=== PATIENT | female | born 1940 | race Caucasian/White ===

== ENCOUNTER 2020-01-04 22:11 | Inpatient (IN) | payer MEDICARE ==
[2020-01-05] MEDS ORDERED: Ondansetron 4 mg VIAL 2 MG/ML 2 ml VIAL IV PRN (01:39)
[2020-01-05] MEDS ORDERED: NS 0.9% 1000 ml BAG 1,000 ML IV SCH (01:45)
[2020-01-05] MEDS ORDERED: Albuterol HFA INHALER 8 gm MDI INH PRN (01:54)
[2020-01-05 02:15] LABS: ABS Basophils 0.1 10^3/ul (0-0.2); ABS Lymphocytes 1.6 10^3/ul (1.0-4.8); ABS Monocytes 1.4 10^3/ul (0-0.8); Eosinophil % 0.3 %; Hematocrit 50 % (35-47); Hemoglobin 16.8 g/dL (12.0-16.0); Lymphocyte % 15.1 %; Mean Corpuscular HGB Conc 33 g/dL (31-36); Mean Corpuscular Hemoglobin 32 pg (27-31); Mean Corpuscular Volume 97 fL (80-97); Platelet Count 237 10^3/uL (150-450); Red Cell Distribution Width 15 % (10-15); White Blood Count 10.8 10^3/uL (3.5-10.8)
[2020-01-05 02:20] LABS: INR 1.12 (0.82-1.09)
[2020-01-05] MEDS: Metoprolol Tartrate 5 mg VIAL 5 ml VIAL (1 mg/ml) IV SCH ×4 (02:28→19:50)
[2020-01-05 02:32] LABS: BUN/Creatinine Ratio 31.1 (8-20); Calcium 9.7 mg/dL (8.6-10.3); EGFR African American 91.1 (>60); EGFR Non-African American 75.3 (>60); Potassium 4.7 mmol/L (3.5-5.0)
[2020-01-05 02:51] LABS: Urine Appearance Cloudy; Urine Bilirubin Negative (Negative); Urine Blood 2+ (Negative); Urine Color Yellow; Urine Glucose Negative (Negative); Urine Ketones 2+ (Negative); Urine Nitrite Negative (Negative); Urine Protein 1+(30 mg/dL) (Negative); Urine Specific Gravity 1.025 (1.010-1.030); Urine Urobilinogen Negative (Negative)
[2020-01-05] MEDS ORDERED: D5W 1/2 NS 1000 ml BAG 1,000 ML IV SCH (03:00)
[2020-01-05 03:15] LABS: Urine Bacteria 1+ (Absent); Urine Red Blood Cell 3+(>10/hpf) (Absent); Urine Squamous Epithelial Cell Present (Absent); Urine White Blood Cell 3+(>20/hpf) (Absent)
[2020-01-05] MEDS: metroNIDAZOLE IV 500 MG/100ML 500 MG/100 ML BAG IVPB SCH ×3 (04:16→19:40)
[2020-01-05] MEDS: Pantoprazole VIAL 40 MG VIAL IV SCH (04:21)
[2020-01-05] MEDS: Levothyroxine 100 MCG/5 ML VIAL IV SCH (06:02)
[2020-01-05] MEDS: Heparin 5000 UNITS/ML VIAL(*) 1 ml vial SUBCUT SCH ×3 (06:05→22:23)
[2020-01-05 06:26] LABS: BUN/Creatinine Ratio 31.9 (8-20); Calcium 8.8 mg/dL (8.6-10.3); EGFR African American 98.8 (>60); EGFR Non-African American 81.7 (>60); Potassium 4.2 mmol/L (3.5-5.0)
[2020-01-05 08:33] LABS: TSH (Thyroid Stimulating Horm) 2.97 mcIU/mL (0.34-5.60)
[2020-01-05] MEDS: cefTRIAXone VIAL 1,000 MG in NS 0.9% 50 ML 50 ML IVPB SCH (09:07)
[2020-01-05] MEDS: Digoxin IV 0.5 MG/2 ML AMP (0.25 MG/ML) IV SLOW PU SCH (09:07)
[2020-01-05] MEDS ORDERED: Midazolam 10 mg/10 ml VIAL 1 mg/ml 10 ml VIAL (10 mg) ONE (12:48)
[2020-01-05] MEDS ORDERED: fentaNYL 100 mcg/2 ml 50 MCG/ML VIAL ONE (12:48)
[2020-01-05] MEDS: D5LR 20 MEQ KCL 1000 ml BAG 1,000 ML IV SCH (18:00)
[2020-01-06] MEDS: Metoprolol Tartrate 5 mg VIAL 5 ml VIAL (1 mg/ml) IV SCH ×4 (02:22→20:08)
[2020-01-06] MEDS: metroNIDAZOLE IV 500 MG/100ML 500 MG/100 ML BAG IVPB SCH ×3 (03:51→20:08)
[2020-01-06] MEDS: Levothyroxine 100 MCG/5 ML VIAL IV SCH (05:53)
[2020-01-06] MEDS: Heparin 5000 UNITS/ML VIAL(*) 1 ml vial SUBCUT SCH ×3 (05:53→21:43)
[2020-01-06 06:11] LABS: Hematocrit 45 % (35-47); Hemoglobin 15.3 g/dL (12.0-16.0); Mean Corpuscular HGB Conc 34 g/dL (31-36); Mean Corpuscular Hemoglobin 32 pg (27-31); Mean Corpuscular Volume 95 fL (80-97); Mean Platelet Volume 9.4 fL (7.4-10.4); Platelet Count 212 10^3/uL (150-450); Red Blood Count 4.73 10^6 /uL (3.70-4.87); Red Cell Distribution Width 15 % (10-15); White Blood Count 7.4 10^3/uL (3.5-10.8)
[2020-01-06 06:21] LABS: BUN/Creatinine Ratio 16.7 (8-20); Calcium 8.7 mg/dL (8.6-10.3); Potassium 3.8 mmol/L (3.5-5.0)
[2020-01-06 06:37] LABS: ABS Eosinophils 0.1 10^3/ul (0-0.6); ABS Lymphocytes 1.3 10^3/ul (1.0-4.8); ABS Monocytes 0.9 10^3/ul (0-0.8); Eosinophil % 1.9 %; Large Platelets Present; Lymphocyte % 17.5 %
[2020-01-06 06:48] LABS: Digoxin 0.7 ng/ml (0.8-2.0)
[2020-01-06] MEDS: cefTRIAXone VIAL 1,000 MG in NS 0.9% 50 ML 50 ML IVPB SCH (08:15)
[2020-01-06] MEDS: Pantoprazole VIAL 40 MG VIAL IV SCH (08:17)
[2020-01-06] MEDS: D5LR 20 MEQ KCL 1000 ml BAG 1,000 ML IV SCH (08:23)
[2020-01-06] MEDS ORDERED: Lidocaine 2% PF 5 ML VIAL ONE (11:02)
[2020-01-06] MEDS ORDERED: fentaNYL 100 mcg/2 ml 50 MCG/ML VIAL ONE (11:02)
[2020-01-06] MEDS ORDERED: Midazolam 5 mg/5 ml VIAL 1 mg/ml 5 ml VIAL (5 mg) ONE (11:02)
[2020-01-06] MEDS ORDERED: Dexamethasone IV 4 MG/ML VIAL 1 ml VIAL ONE (11:02)
[2020-01-06] MEDS ORDERED: Propofol 10 MG/ML 20 ML BTL ONE (11:02)
[2020-01-06] MEDS ORDERED: Ondansetron 4 mg VIAL 2 MG/ML 2 ml VIAL ONE (11:02)
[2020-01-06] MEDS ORDERED: Cisatracurium 2 MG/ML MDV 5 ML ONE (11:04)
[2020-01-06] MEDS ORDERED: Famotidine IV 10 MG/ML 2 ml VIAL (20 mg) ONE (11:22)
[2020-01-06] MEDS ORDERED: Buffered Lidocaine 1% SYRIN 1 ml INTRADERM ONE (11:23)
[2020-01-06] MEDS ORDERED: Famotidine IV 10 MG/ML 2 ml VIAL (20 mg) IV ONE (11:23)
[2020-01-06] MEDS ORDERED: Lidocaine 1% w EPI 1:200,000 SDV 30 ML VIAL ONE (11:23)
[2020-01-06] MEDS ORDERED: Phenylephrine 40 mcg/mL 10mL (400mcg) SYRINGE ONE (11:58)
[2020-01-06] MEDS ORDERED: Lactated Ringers 1000 ml BAG 1,000 ML IV SCH (12:00)
[2020-01-06] MEDS ORDERED: Metoprolol Tartrate 5 mg VIAL 5 ml VIAL (1 mg/ml) ONE (12:05)
[2020-01-06] MEDS ORDERED: Neostigmine Methylsulfate 1 MG/ML 10 ML VIAL (1 mg/ml) ONE (12:29)
[2020-01-06] MEDS ORDERED: Glycopyrrolate IV 0.2 MG/ML 1 ML VIAL ONE (12:29)
[2020-01-06] MEDS ORDERED: Naloxone 0.4 mg VIAL 0.4 mg/ml 1 ml VIAL IV PRN (14:44)
[2020-01-07] MEDS: Metoprolol Tartrate 5 mg VIAL 5 ml VIAL (1 mg/ml) IV SCH ×4 (02:05→21:37)
[2020-01-07] MEDS: metroNIDAZOLE IV 500 MG/100ML 500 MG/100 ML BAG IVPB SCH (03:59)
[2020-01-07] MEDS: D5LR 20 MEQ KCL 1000 ml BAG 1,000 ML IV SCH ×2 (05:54→19:42)
[2020-01-07] MEDS: Heparin 5000 UNITS/ML VIAL(*) 1 ml vial SUBCUT SCH (05:56)
[2020-01-07] MEDS: Levothyroxine 100 MCG/5 ML VIAL IV SCH (05:56)
[2020-01-07] MEDS: Digoxin IV 0.5 MG/2 ML AMP (0.25 MG/ML) IV SLOW PU SCH (08:21)
[2020-01-07] MEDS: Pantoprazole VIAL 40 MG VIAL IV SCH (08:21)
[2020-01-07] MEDS: cefTRIAXone VIAL 1,000 MG in NS 0.9% 50 ML 50 ML IVPB SCH (08:23)
[2020-01-07] MEDS ORDERED: Enoxaparin 40 MG/0.4 ML SYR(*) SUBCUT SCH (11:00)
[2020-01-08] MEDS: Metoprolol Tartrate 5 mg VIAL 5 ml VIAL (1 mg/ml) IV SCH ×4 (03:21→19:59)
[2020-01-08] MEDS: Levothyroxine 100 MCG/5 ML VIAL IV SCH (06:19)
[2020-01-08] MEDS: Pantoprazole VIAL 40 MG VIAL IV SCH (08:53)
[2020-01-08] MEDS: cefTRIAXone VIAL 1,000 MG in NS 0.9% 50 ML 50 ML IVPB SCH (08:59)
[2020-01-08] MEDS: D5LR 20 MEQ KCL 1000 ml BAG 1,000 ML IV SCH (09:41)
[2020-01-08] MEDS ORDERED: LORazepam 2 mg VIAL 1 ml IV PUSH PRN (10:51)
[2020-01-08] MEDS ORDERED: Lorazepam PYXIS KEY PRN (10:51)
[2020-01-09] MEDS: Metoprolol Tartrate 5 mg VIAL 5 ml VIAL (1 mg/ml) IV SCH ×4 (02:13→20:30)
[2020-01-09] MEDS: Levothyroxine 100 MCG/5 ML VIAL IV SCH (05:28)
[2020-01-09] MEDS: D5LR 20 MEQ KCL 1000 ml BAG 1,000 ML IV SCH (05:40)
[2020-01-09 05:47] LABS: Hematocrit 47 % (35-47); Hemoglobin 15.8 g/dL (12.0-16.0); Mean Corpuscular HGB Conc 34 g/dL (31-36); Mean Corpuscular Hemoglobin 33 pg (27-31); Mean Corpuscular Volume 97 fL (80-97); Mean Platelet Volume 9.5 fL (7.4-10.4); Platelet Count 184 10^3/uL (150-450); Red Blood Count 4.86 10^6 /uL (3.70-4.87); Red Cell Distribution Width 14 % (10-15); White Blood Count 8.9 10^3/uL (3.5-10.8)
[2020-01-09 06:03] LABS: EGFR African American 98.8 (>60); EGFR Non-African American 81.7 (>60); Magnesium 1.7 mg/dL (1.9-2.7); Potassium 3.6 mmol/L (3.5-5.0)
[2020-01-09 06:15] LABS: ABS Basophils 0.1 10^3/ul (0-0.2); ABS Eosinophils 0.1 10^3/ul (0-0.6); ABS Lymphocytes 1.3 10^3/ul (1.0-4.8); ABS Monocytes 1.2 10^3/ul (0-0.8); Eosinophil % 1.7 %; Large Platelets Present; Lymphocyte % 15.1 %; Spherocytes 1+
[2020-01-09] MEDS: Pantoprazole VIAL 40 MG VIAL IV SCH (08:39)
[2020-01-09] MEDS: Digoxin IV 0.5 MG/2 ML AMP (0.25 MG/ML) IV SLOW PU SCH (08:57)
[2020-01-09 09:15] LABS: Mean Platelet Volume 9.7 fL (7.4-10.4); Platelet Count 191 10^3/uL (150-450)
[2020-01-09] MEDS: cefTRIAXone VIAL 1,000 MG in NS 0.9% 50 ML 50 ML IVPB SCH (09:35)
[2020-01-09 09:37] LABS: INR 1.17 (0.82-1.09)
[2020-01-09] MEDS ORDERED: ceFAZolin 1 GM* X ONE DOSE (AddVan) IVPB (10:00)
[2020-01-09] MEDS ORDERED: Bupivacaine 0.5% SDV PF 30ML VIAL ONE (11:12)
[2020-01-09] MEDS ORDERED: fentaNYL 100 mcg/2 ml 50 MCG/ML VIAL ONE (11:18)
[2020-01-09] MEDS ORDERED: Midazolam 2 mg/2 ml VIAL 1 mg/ml 2 ml VIAL (2 mg) ONE (11:19)
[2020-01-09] MEDS ORDERED: Lidocaine 2% JELLY 6 ML TOPICAL ONE (11:53)
[2020-01-10] MEDS: D5LR 20 MEQ KCL 1000 ml BAG 1,000 ML IV SCH (02:12)
[2020-01-10] MEDS: Metoprolol Tartrate 5 mg VIAL 5 ml VIAL (1 mg/ml) IV SCH ×3 (02:17→14:07)
[2020-01-10] MEDS: Levothyroxine 100 MCG/5 ML VIAL IV SCH (06:28)
[2020-01-10 06:56] LABS: Hematocrit 47 % (35-47); Hemoglobin 15.4 g/dL (12.0-16.0); Mean Corpuscular HGB Conc 33 g/dL (31-36); Mean Corpuscular Hemoglobin 32 pg (27-31); Mean Corpuscular Volume 97 fL (80-97); Mean Platelet Volume 9.7 fL (7.4-10.4); Platelet Count 189 10^3/uL (150-450); Red Blood Count 4.79 10^6 /uL (3.70-4.87); Red Cell Distribution Width 14 % (10-15); White Blood Count 11.9 10^3/uL (3.5-10.8)
[2020-01-10 07:09] LABS: ABS Eosinophils 0.1 10^3/ul (0-0.6); ABS Lymphocytes 1.1 10^3/ul (1.0-4.8); ABS Monocytes 1.2 10^3/ul (0-0.8); Eosinophil % 1.2 %; Lymphocyte % 9.3 %; Nucleated Red Blood Cells % 0.1
[2020-01-10 07:12] LABS: BUN/Creatinine Ratio 18.2 (8-20); Magnesium 1.7 mg/dL (1.9-2.7); Potassium 3.7 mmol/L (3.5-5.0)
[2020-01-10 07:52] LABS: Large Platelets Present
[2020-01-10] MEDS ORDERED: D5LR 20 MEQ KCL 1000 ml BAG 1,000 ML IV SCH (08:06)
[2020-01-10] MEDS: Pantoprazole VIAL 40 MG VIAL IV SCH (08:58)
[2020-01-10] MEDS: cefTRIAXone VIAL 1,000 MG in NS 0.9% 50 ML 50 ML IVPB SCH (10:09)
[2020-01-10] MEDS: Enoxaparin 40 MG/0.4 ML SYR(*) SUBCUT SCH (14:07)
[2020-01-10] MEDS ORDERED: Gadoteridol (CONTRAST) 279.3 MG/ML 10 ML IV ONE (16:14)
[2020-01-11 06:58] LABS: Hematocrit 47 % (35-47); Hemoglobin 15.9 g/dL (12.0-16.0); Mean Corpuscular HGB Conc 34 g/dL (31-36); Mean Corpuscular Hemoglobin 33 pg (27-31); Mean Corpuscular Volume 97 fL (80-97); Mean Platelet Volume 10.5 fL (7.4-10.4); Platelet Count 158 10^3/uL (150-450); Red Blood Count 4.89 10^6 /uL (3.70-4.87); Red Cell Distribution Width 15 % (10-15); White Blood Count 13.4 10^3/uL (3.5-10.8)
[2020-01-11 07:05] LABS: ABS Eosinophils 0.2 10^3/ul (0-0.6); ABS Lymphocytes 0.9 10^3/ul (1.0-4.8); ABS Monocytes 1.4 10^3/ul (0-0.8); Eosinophil % 1.1 %; Lymphocyte % 7.1 %; Nucleated Red Blood Cells % 0.1
[2020-01-11 07:18] LABS: BUN/Creatinine Ratio 23.1 (8-20); Calcium 9.2 mg/dL (8.6-10.3); EGFR African American 105.9 (>60); EGFR Non-African American 87.5 (>60); Magnesium 1.7 mg/dL (1.9-2.7)
[2020-01-11] MEDS: Aspirin EC 81 mg TAB.EC (enteric coated) SCH (09:24)
[2020-01-11] MEDS: cefTRIAXone VIAL 1,000 MG in NS 0.9% 50 ML 50 ML IVPB SCH (09:27)
[2020-01-11] MEDS ORDERED: Magnesium Sulfate IV 1GM/100ML 1 GM/100 ML BAG IV ONE (10:38)
[2020-01-11] MEDS: Enoxaparin 40 MG/0.4 ML SYR(*) SUBCUT SCH (11:55)
[2020-01-11] MEDS ORDERED: Alteplase (CATHFLO) 2 MG VIAL IV ONE (18:19)
[2020-01-12 06:33] LABS: ABS Basophils 0.1 10^3/ul (0-0.2); ABS Eosinophils 0.2 10^3/ul (0-0.6); ABS Lymphocytes 1.1 10^3/ul (1.0-4.8); ABS Monocytes 1.4 10^3/ul (0-0.8); Eosinophil % 1.8 %; Hematocrit 44 % (35-47); Hemoglobin 14.7 g/dL (12.0-16.0); Lymphocyte % 8.7 %; Mean Corpuscular HGB Conc 33 g/dL (31-36); Mean Corpuscular Hemoglobin 32 pg (27-31); Mean Corpuscular Volume 96 fL (80-97); Mean Platelet Volume 10.5 fL (7.4-10.4); Platelet Count 171 10^3/uL (150-450); Red Blood Count 4.61 10^6 /uL (3.70-4.87); Red Cell Distribution Width 15 % (10-15); White Blood Count 12.2 10^3/uL (3.5-10.8)
[2020-01-12 06:38] LABS: Calcium 8.8 mg/dL (8.6-10.3); Magnesium 2.1 mg/dL (1.9-2.7)
[2020-01-12 06:43] LABS: BUN/Creatinine Ratio 30.5 (8-20); EGFR African American 118.4 (>60); EGFR Non-African American 97.8 (>60)
[2020-01-12 06:55] LABS: Potassium 3.7 mmol/L (3.5-5.0)
[2020-01-12] MEDS: cefTRIAXone VIAL 1,000 MG in NS 0.9% 50 ML 50 ML IVPB SCH (10:15)
[2020-01-12] MEDS: Aspirin EC 81 mg TAB.EC (enteric coated) SCH (10:24)
[2020-01-12] MEDS: Digoxin LIQ ORALSYR 0.05 MG/ML 1 ML PEG TUBE SCH (10:27)
[2020-01-12] MEDS: Enoxaparin 40 MG/0.4 ML SYR(*) SUBCUT SCH (11:28)
[2020-01-13 18:48] LABS: Anion Gap 6 mmol/L (2-11); BUN/Creatinine Ratio 32.1 (8-20); Blood Urea Nitrogen 17 mg/dL (6-24); CO2 Carbon Dioxide 30 mmol/L (22-32); Calcium 8.9 mg/dL (8.6-10.3); Chloride 101 mmol/L (101-111); EGFR Non-African American 110.7 (>60); Glucose 119 mg/dL (70-100); Sodium 137 mmol/L (135-145)
[2020-01-13 18:49] LABS: Hematocrit 42 % (35-47); Hemoglobin 14.4 g/dL (12.0-16.0); Mean Corpuscular HGB Conc 34 g/dL (31-36); Mean Corpuscular Hemoglobin 33 pg (27-31); Mean Corpuscular Volume 96 fL (80-97); Red Blood Count 4.41 10^6 /uL (3.70-4.87); White Blood Count 10.3 10^3/uL (3.5-10.8)
[2020-01-13 18:50] LABS: ABS Eosinophils 0.2 10^3/ul (0-0.6); ABS Monocytes 1.2 10^3/ul (0-0.8); Eosinophil % 2.1 %; Lymphocyte % 10.2 %; Mean Platelet Volume 10.9 fL (7.4-10.4); Nucleated Red Blood Cells % 0.3; Platelet Count 172 10^3/uL (150-450); Red Cell Distribution Width 15 % (10-15)
[2020-01-13] MEDS: Aspirin EC 81 mg TAB.EC (enteric coated) SCH (18:50)
[2020-01-13] MEDS: Enoxaparin 40 MG/0.4 ML SYR(*) SUBCUT SCH (18:51)
[2020-01-13] MEDS: cefTRIAXone VIAL 1,000 MG in NS 0.9% 50 ML 50 ML IVPB SCH (18:51)
[2020-01-13] MEDS ORDERED: Iohexol 300 (CONTRAST) 10 ML SDV IV ONE (19:46)
[2020-01-14] MEDS ORDERED: [UNRECOGNIZED DRUG - REMARK] TOPICAL ONE (02:27)
[2020-01-14 05:55] LABS: Hematocrit 40 % (35-47); Hemoglobin 13.6 g/dL (12.0-16.0); Mean Corpuscular HGB Conc 34 g/dL (31-36); Mean Corpuscular Hemoglobin 33 pg (27-31); Mean Corpuscular Volume 96 fL (80-97); Mean Platelet Volume 10.2 fL (7.4-10.4); Platelet Count 174 10^3/uL (150-450); Red Blood Count 4.15 10^6 /uL (3.70-4.87); Red Cell Distribution Width 15 % (10-15); White Blood Count 10.2 10^3/uL (3.5-10.8)
[2020-01-14 06:05] LABS: INR 1.01 (0.82-1.09)
[2020-01-14 06:13] LABS: ABS Basophils 0.1 10^3/ul (0-0.2); ABS Eosinophils 0.3 10^3/ul (0-0.6); ABS Monocytes 1.1 10^3/ul (0-0.8); Large Platelets Present; Lymphocyte % 10.2 %; Nucleated Red Blood Cells % 0.1
[2020-01-14] MEDS: cefTRIAXone VIAL 1,000 MG in NS 0.9% 50 ML 50 ML IVPB SCH (09:58)
[2020-01-14] MEDS: Aspirin EC 81 mg TAB.EC (enteric coated) SCH (10:00)
[2020-01-14] MEDS: Digoxin LIQ ORALSYR 0.05 MG/ML 1 ML PEG TUBE SCH (10:03)
[2020-01-14] MEDS: Enoxaparin 40 MG/0.4 ML SYR(*) SUBCUT SCH (11:42)
[2020-01-14 16:10] VITALS: BP 124/51
[2020-01-14] MEDS ORDERED: Aspirin EC 81 mg TAB.EC (enteric coated) SCH (18:08)
[2020-01-14 18:14] LABS: Hematocrit 40 % (35-47); Hemoglobin 13.6 g/dL (12.0-16.0)
== END 2020-01-14 18:30 | disposition short-term general hospital (02) | DRG 374 ==
LOC: SSU 01-05 00:53 → OBSVTOIN 01-05 11:00 → SSU 01-13 17:18
PROVIDERS: ADMIT Hospitalist; ATTEND Hospitalist
DX: Z93.1 Gastrostomy status (principal)

== ENCOUNTER 2020-05-03 13:58 | Inpatient (IN) ==
[2020-05-03] MEDS ORDERED: cefTRIAXone 1 gm/50 mL NS BAG 1 GM/50 ML BAG IVPB ONE (14:53)
[2020-05-03 15:35] LABS: Hematocrit 41 % (35-47); Hemoglobin 13.6 g/dL (12.0-16.0); Mean Corpuscular HGB Conc 34 g/dL (31-36); Mean Corpuscular Hemoglobin 32 pg (27-31); Mean Corpuscular Volume 95 fL (80-97); Mean Platelet Volume 11.3 fL (7.4-10.4); Platelet Count 113 10^3/uL (150-450); Red Blood Count 4.31 10^6 /uL (3.70-4.87); Red Cell Distribution Width 15 % (10-15); White Blood Count 10.2 10^3/uL (3.5-10.8)
[2020-05-03 15:38] LABS: ABS Eosinophils 0.1 10^3/ul (0-0.6); ABS Lymphocytes 0.9 10^3/ul (1.0-4.8); ABS Monocytes 1.5 10^3/ul (0-0.8); ABS Neutrophils 7.7 10^3/ul (1.5-7.7); Eosinophil % 0.8 %; Lymphocyte % 8.9 %; Nucleated Red Blood Cells % 0.3
[2020-05-03 15:45] LABS: Activated Partial Thrombo Time 29.1 seconds (26.0-38.0); INR 1.01 (0.82-1.09)
[2020-05-03 15:58] LABS: BUN/Creatinine Ratio 43.3 (8-20); EGFR Non-African American 84.3 (>60); Potassium 4.7 mmol/L (3.5-5.0)
[2020-05-03 15:59] LABS: Calcium 9.3 mg/dL (8.6-10.3)
[2020-05-03] MEDS: Lactated Ringers 1000 ml BAG 1,000 ML IV SCH (16:30)
[2020-05-03] MEDS: Silver Sulfadiazine 1% 20 gm TUBE TOPICAL PRN (22:17)
[2020-05-03] MEDS: HYDROcodone/ACET. 7.5/325 LIQ 15 ML UDC FEED TUBE PRN (22:18)
[2020-05-04] MEDS: Lactated Ringers 1000 ml BAG 1,000 ML IV SCH ×2 (01:00→11:34)
[2020-05-04 05:56] LABS: Hematocrit 41 % (35-47); Hemoglobin 13.7 g/dL (12.0-16.0); Mean Corpuscular HGB Conc 34 g/dL (31-36); Mean Corpuscular Hemoglobin 32 pg (27-31); Mean Corpuscular Volume 94 fL (80-97); Mean Platelet Volume 12.5 fL (7.4-10.4); Platelet Count 215 10^3/uL (150-450); Red Blood Count 4.32 10^6 /uL (3.70-4.87); Red Cell Distribution Width 15 % (10-15); White Blood Count 11.6 10^3/uL (3.5-10.8)
[2020-05-04 06:06] LABS: BUN/Creatinine Ratio 32.1 (8-20); Blood Urea Nitrogen 17 mg/dL (6-24); CO2 Carbon Dioxide 28 mmol/L (22-32); Calcium 9.1 mg/dL (8.6-10.3); Chloride 104 mmol/L (101-111); EGFR African American 133.6 (>60); EGFR Non-African American 110.4 (>60); Glucose 115 mg/dL (70-100); Phosphorus 2.9 mg/dL (2.5-5.0); Sodium 139 mmol/L (135-145)
[2020-05-04 06:23] LABS: Anion Gap 7 mmol/L (2-11)
[2020-05-04 06:37] LABS: ABS Basophils 0.1 10^3/ul (0-0.2); ABS Eosinophils 0.1 10^3/ul (0-0.6); ABS Lymphocytes 1.1 10^3/ul (1.0-4.8); ABS Monocytes 1.5 10^3/ul (0-0.8); ABS Neutrophils 8.8 10^3/ul (1.5-7.7); Eosinophil % 1.2 %; Lymphocyte % 9.3 %; Nucleated Red Blood Cells % 0.3
[2020-05-04] MEDS ORDERED: Chlorhexidine MOUTHWASH 0.12% 15 ML UDC TOPICAL PRN (06:38)
[2020-05-04] MEDS: cefTRIAXone 1 gm/50 mL NS BAG 1 GM/50 ML BAG IVPB SCH (13:52)
[2020-05-04] MEDS ORDERED: Lidocaine 1% w EPI 1:100,000 MDV 20 ML VIAL ONE (13:53)
[2020-05-04] MEDS ORDERED: fentaNYL 100 mcg/2 ml 50 MCG/ML VIAL ONE (14:31)
[2020-05-04] MEDS ORDERED: Rocuronium 50 mg VIAL 10 mg/ml 5 ml VIAL (50 mg) ONE (14:31)
[2020-05-04] MEDS ORDERED: Propofol 10 MG/ML 20 ML BTL ONE (14:32)
[2020-05-04] MEDS ORDERED: Midazolam 5 mg/5 ml VIAL 1 mg/ml 5 ml VIAL (5 mg) ONE (14:32)
[2020-05-04] MEDS ORDERED: Lactated Ringers 1000 ml BAG 1,000 ML IV SCH (15:58)
[2020-05-04] MEDS: HYDROcodone/ACET. 7.5/325 LIQ 15 ML UDC FEED TUBE PRN ×2 (16:15→20:55)
[2020-05-04] MEDS: Silver Sulfadiazine 1% 20 gm TUBE TOPICAL PRN (20:56)
[2020-05-05] MEDS: HYDROcodone/ACET. 7.5/325 LIQ 15 ML UDC FEED TUBE PRN ×3 (04:38→20:49)
[2020-05-05 05:15] LABS: Hematocrit 40 % (35-47); Hemoglobin 13.3 g/dL (12.0-16.0); Mean Corpuscular HGB Conc 33 g/dL (31-36); Mean Corpuscular Hemoglobin 31 pg (27-31); Mean Corpuscular Volume 94 fL (80-97); Mean Platelet Volume 11.3 fL (7.4-10.4); Platelet Count 237 10^3/uL (150-450); Red Blood Count 4.23 10^6 /uL (3.70-4.87); Red Cell Distribution Width 15 % (10-15); White Blood Count 10.6 10^3/uL (3.5-10.8)
[2020-05-05 06:16] LABS: Calcium 8.5 mg/dL (8.6-10.3); Potassium 4.1 mmol/L (3.5-5.0)
[2020-05-05 06:17] LABS: ABS Eosinophils 0.1 10^3/ul (0-0.6); ABS Lymphocytes 0.7 10^3/ul (1.0-4.8); ABS Monocytes 1.5 10^3/ul (0-0.8); ABS Neutrophils 8.3 10^3/ul (1.5-7.7); Eosinophil % 0.8 %; Lymphocyte % 6.2 %; Nucleated Red Blood Cells % 0.2
[2020-05-05 06:22] LABS: BUN/Creatinine Ratio 27.5 (8-20); EGFR African American 139.7 (>60); EGFR Non-African American 115.5 (>60)
[2020-05-05] MEDS: cefTRIAXone 1 gm/50 mL NS BAG 1 GM/50 ML BAG IVPB SCH (15:16)
[2020-05-06] MEDS: HYDROcodone/ACET. 7.5/325 LIQ 15 ML UDC FEED TUBE PRN ×3 (05:56→20:42)
[2020-05-06] MEDS: Enoxaparin 40 MG/0.4 ML SYR SUBCUT SCH (11:15)
[2020-05-06] MEDS: cefTRIAXone 1 gm/50 mL NS BAG 1 GM/50 ML BAG IVPB SCH (13:53)
[2020-05-07] MEDS: HYDROcodone/ACET. 7.5/325 LIQ 15 ML UDC FEED TUBE PRN ×5 (00:58→21:54)
[2020-05-07] MEDS ORDERED: Lorazepam PYXIS KEY PRN (08:35)
[2020-05-07] MEDS ORDERED: LORazepam 2 mg VIAL 1 ml IV PUSH ONE (08:35)
[2020-05-07] MEDS ORDERED: Lorazepam PYXIS KEY ONE (08:37)
[2020-05-07] MEDS ORDERED: LORazepam 2 mg VIAL 1 ml ONE (08:37)
[2020-05-07] MEDS: Enoxaparin 40 MG/0.4 ML SYR SUBCUT SCH (11:43)
[2020-05-08] MEDS: HYDROcodone/ACET. 7.5/325 LIQ 15 ML UDC FEED TUBE PRN ×2 (04:56→14:23)
[2020-05-08] MEDS: Enoxaparin 40 MG/0.4 ML SYR SUBCUT SCH (11:51)
[2020-05-09] MEDS: Silver Sulfadiazine 1% 20 gm TUBE TOPICAL SCH ×2 (00:29→09:16)
[2020-05-09] MEDS: Enoxaparin 40 MG/0.4 ML SYR SUBCUT SCH (09:16)
[2020-05-09] MEDS: HYDROcodone/ACET. 7.5/325 LIQ 15 ML UDC FEED TUBE PRN (11:44)
[2020-05-09 15:51] VITALS: BP 97/49
== END 2020-05-09 16:30 | disposition home health service (06) | DRG 12 ==
LOC: ED 13:58 → ICU 18:03 → SSU 05-07 13:36
PROVIDERS: ADMIT Internal Medicine; ATTEND Student in an Organized Health Care Education/Training Program

== ENCOUNTER 2020-08-07 12:07 | Observation (INO) ==
[2020-08-07] MEDS ORDERED: Morphine 2 MG/ML SYRINGE IV PRN (12:35)
[2020-08-07] MEDS ORDERED: NS 0.9% 1000 ml BAG 1,000 ML IV SCH (12:45)
[2020-08-07] MEDS ORDERED: Acyclovir IV 500 MG/10 ML 100 ML VIAL (500 MG) IVPB SCH (13:00)
[2020-08-07] MEDS ORDERED: Ondansetron 4 mg VIAL 2 MG/ML 2 ml VIAL IV PRN (13:11)
[2020-08-07 13:24] LABS: ABS Lymphocytes 0.9 10^3/ul (1.0-4.8); ABS Monocytes 1.3 10^3/ul (0-0.8); ABS Neutrophils 8.2 10^3/ul (1.5-7.7); Eosinophil % 0.4 %; Hematocrit 47 % (35-47); Hemoglobin 15.3 g/dL (12.0-16.0); Lymphocyte % 8.2 %; Mean Corpuscular HGB Conc 33 g/dL (31-36); Mean Corpuscular Hemoglobin 31 pg (27-31); Mean Corpuscular Volume 93 fL (80-97); Mean Platelet Volume 9.5 fL (7.4-10.4); Nucleated Red Blood Cells % 0.1; Platelet Count 51 10^3/uL (150-450); Red Blood Count 5.03 10^6 /uL (3.70-4.87); Red Cell Distribution Width 18 % (10-15); White Blood Count 10.4 10^3/uL (3.5-10.8)
[2020-08-07 13:33] LABS: ALT 35 U/L (7-52); Albumin 3.8 g/dL (3.2-5.2); Alkaline Phosphatase 114 U/L (34-104); BUN/Creatinine Ratio 43.9 (8-20); Blood Urea Nitrogen 25 mg/dL (6-24); CO2 Carbon Dioxide 25 mmol/L (22-32); Calcium 9.6 mg/dL (8.6-10.3); Chloride 99 mmol/L (101-111); EGFR African American 122.9 (>60); EGFR Non-African American 101.5 (>60); Globulin 3.8 g/dL (2-4); Glucose 117 mg/dL (70-100); Sodium 133 mmol/L (135-145); Total Protein 7.6 g/dL (6.4-8.9)
[2020-08-07 13:52] LABS: Anion Gap 9 mmol/L (2-11)
[2020-08-07] MEDS: ACYCLOVIR IVPB SCH ×2 (14:36→21:56)
[2020-08-07] MEDS: NS 0.9% IVPB SCH ×2 (14:36→21:56)
[2020-08-07] MEDS ORDERED: HYDROcodone/ACET. 7.5/325 LIQ 15 ML UDC FEED TUBE PRN (16:48)
[2020-08-07] MEDS: Dexamethasone IV 10 MG in NS 0.9% 50 ML 50 ML IVPB SCH (17:09)
[2020-08-07] MEDS: Famotidine IV 10 MG/ML 2 ml VIAL (20 mg) IV SLOW PU SCH (17:09)
[2020-08-07 18:32] LABS: Potassium Redraw 4.2 mmol/L (3.5-5.0)
[2020-08-07] MEDS ORDERED: Acyclovir IV 450 MG in NS 0.9% 100 ml BAG 100 ML IVPB SCH (22:38)
[2020-08-08] MEDS: NS 0.9% IVPB SCH (06:16)
[2020-08-08] MEDS: ACYCLOVIR IVPB SCH (06:16)
[2020-08-08] MEDS: Acyclovir IV 450 MG in NS 0.9% 100 ml BAG 100 ML IVPB SCH ×2 (06:17→14:06)
[2020-08-08 07:45] VITALS: BP 136/86
[2020-08-08 08:04] LABS: Albumin 3.3 g/dL (3.2-5.2); Albumin/Globulin Ratio 0.9 (1-3); BUN/Creatinine Ratio 42.9 (8-20); Calcium 8.7 mg/dL (8.6-10.3); EGFR African American 125.4 (>60); EGFR Non-African American 103.6 (>60); Globulin 3.6 g/dL (2-4); Potassium 4.6 mmol/L (3.5-5.0); Total Bilirubin 0.3 mg/dL (0.2-1.0); Total Protein 6.9 g/dL (6.4-8.9)
[2020-08-08] MEDS ORDERED: Dexamethasone IV 4 MG/ML 5 ML VIAL (20 MG) ONE (08:50)
[2020-08-08] MEDS: Famotidine IV 10 MG/ML 2 ml VIAL (20 mg) IV SLOW PU SCH (09:01)
[2020-08-08] MEDS: Dexamethasone IV 10 MG in NS 0.9% 50 ML 50 ML IVPB SCH (09:10)
[2020-08-08 11:11] LABS: Hematocrit 44 % (35-47); Mean Corpuscular HGB Conc 32 g/dL (31-36); Mean Corpuscular Hemoglobin 30 pg (27-31); Mean Corpuscular Volume 95 fL (80-97); Red Blood Count 4.64 10^6 /uL (3.70-4.87); Red Cell Distribution Width 18 % (10-15); White Blood Count 7.4 10^3/uL (3.5-10.8)
[2020-08-08 11:32] LABS: ABS Lymphocytes 0.6 10^3/ul (1.0-4.8); ABS Monocytes 0.8 10^3/ul (0-0.8); Lymphocyte % 8.4 %; Nucleated Red Blood Cells % 0.1
[2020-08-08 12:35] LABS: Large Platelets Present; Mean Platelet Volume 10.4 fL (7.4-10.4); Platelet Count 105 10^3/uL (150-450)
== END 2020-08-08 15:40 | disposition home or self-care (01) ==
LOC: CHOA 12:07 → MEDTELE 12:35 → INTOOBSV 12:35
PROVIDERS: ADMIT Internal Medicine Hematology & Oncology; ATTEND Internal Medicine Hematology & Oncology

== ENCOUNTER 2021-01-31 00:57 | Inpatient (IN) ==
[2021-01-31] MEDS ORDERED: NS 0.9% 1000 ml BAG 1,000 ML IV ONE (01:25)
[2021-01-31 01:35] LABS: Hematocrit 39 % (35-47); Hemoglobin 13.5 g/dL (12.0-16.0); Mean Corpuscular HGB Conc 34 g/dL (31-36); Mean Corpuscular Hemoglobin 33 pg (27-31); Mean Corpuscular Volume 97 fL (80-97); Mean Platelet Volume 10.8 fL (7.4-10.4); Platelet Count 139 10^3/uL (150-450); Red Blood Count 4.07 10^6 /uL (3.70-4.87); Red Cell Distribution Width 14 % (10-15); White Blood Count 12.6 10^3/uL (3.5-10.8)
[2021-01-31 01:45] LABS: Activated Partial Thrombo Time 31.1 seconds (26.0-38.0); INR 1.06 (0.82-1.09)
[2021-01-31 01:48] LABS: Albumin 3.6 g/dL (3.2-5.2); CO2 Carbon Dioxide 24 mmol/L (22-32); Calcium 9.4 mg/dL (8.6-10.3); Chloride 100 mmol/L (101-111); Sodium 135 mmol/L (135-145)
[2021-01-31 01:54] LABS: ALT 6 U/L (7-52); Albumin/Globulin Ratio 1.1 (1-3); Alkaline Phosphatase 195 U/L (35-149); Blood Urea Nitrogen 18 mg/dL (6-24); EGFR African American 73.5 (>60); EGFR Non-African American 60.7 (>60); Globulin 3.2 g/dL (2-4); Glucose 160 mg/dL (70-100); Total Protein 6.8 g/dL (6.4-8.9)
[2021-01-31 01:55] LABS: Anion Gap 11 mmol/L (2-11)
[2021-01-31 02:06] LABS: ABS Basophils 0.1 10^3/ul (0-0.2); ABS Eosinophils 0.1 10^3/ul (0-0.6); ABS Monocytes 1.4 10^3/ul (0-0.8); ABS Neutrophils 10.1 10^3/ul (1.5-7.7); Eosinophil % 0.6 %; Lymphocyte % 8.2 %
[2021-01-31 02:31] LABS: Potassium Redraw 3.9 mmol/L (3.5-5.0)
[2021-01-31] MEDS ORDERED: fentaNYL 100 mcg/2 ml 50 MCG/ML VIAL ONE ×2 (02:44→07:10)
[2021-01-31] MEDS ORDERED: Midazolam 2 mg/2 ml VIAL 1 mg/ml 2 ml VIAL (2 mg) ONE (02:45)
[2021-01-31] MEDS ORDERED: Rocuronium 50 mg VIAL 10 mg/ml 5 ml VIAL (50 mg) ONE (03:05)
[2021-01-31] MEDS ORDERED: Etomidate 20 mg/10 ml 2 MG/ML 10 ml VIAL ONE (03:21)
[2021-01-31] MEDS ORDERED: Metoprolol Tartrate 5 mg VIAL 5 ml VIAL (1 mg/ml) ONE (03:44)
[2021-01-31] MEDS ORDERED: Phenylephrine IV 10 MG/ML 1 ml VIAL ONE ×2 (03:54→07:10)
[2021-01-31] MEDS ORDERED: Esmolol 10 MG/ML 10 ML (100 mg) ONE (03:54)
[2021-01-31] MEDS ORDERED: Lactated Ringers 1000 ml BAG 1,000 ML IV ONE (04:33)
[2021-01-31] MEDS ORDERED: Digoxin IV 0.5 MG/2 ML AMP (0.25 MG/ML) IV SLOW PU ONE (04:53)
[2021-01-31] MEDS ORDERED: Ondansetron 4 mg VIAL 2 MG/ML 2 ml VIAL IV PRN (04:57)
[2021-01-31 04:59] LABS: Hematocrit 33 % (35-47); Hemoglobin 10.7 g/dL (12.0-16.0); Mean Corpuscular HGB Conc 32 g/dL (31-36); Mean Corpuscular Hemoglobin 32 pg (27-31); Mean Corpuscular Volume 99 fL (80-97); Mean Platelet Volume 11.4 fL (7.4-10.4); Platelet Count 136 10^3/uL (150-450); Red Blood Count 3.33 10^6 /uL (3.70-4.87); Red Cell Distribution Width 14 % (10-15); White Blood Count 31.5 10^3/uL (3.5-10.8)
[2021-01-31 05:01] LABS: INR 1.22 (0.82-1.09)
[2021-01-31 05:13] LABS: Anion Gap 10 mmol/L (2-11); Blood Urea Nitrogen 20 mg/dL (6-24); CO2 Carbon Dioxide 22 mmol/L (22-32); Calcium 8.6 mg/dL (8.6-10.3); Chloride 104 mmol/L (101-111); EGFR African American 81.9 (>60); EGFR Non-African American 67.7 (>60); Glucose 155 mg/dL (70-100); Magnesium 2.1 mg/dL (1.9-2.7); Potassium 4.5 mmol/L (3.5-5.0); Sodium 136 mmol/L (135-145)
[2021-01-31] MEDS ORDERED: Morphine 2 MG/ML SYRINGE IV PRN ×2 (05:18→14:33)
[2021-01-31] MEDS ORDERED: Amiodarone 150 mg IVPREMIX 150 MG/100 ML BAG IV ONE ×2 (05:49→05:55)
[2021-01-31] MEDS ORDERED: Amiodarone 360 MG IVPREMIX 360 MG/200 ML BAG IV ONE ×2 (05:49→05:55)
[2021-01-31 05:51] LABS: ABS Lymphocytes 0.7 10^3/ul (1.0-4.8); ABS Monocytes 1.8 10^3/ul (0-0.8); ABS Neutrophils 29.1 10^3/ul (1.5-7.7); Eosinophil % 0.1 %; Lymphocyte % 2.1 %; Nucleated Red Blood Cells % 0.1
[2021-01-31] MEDS ORDERED: Lactated Ringers 500 ml BAG 500 ML IV SCH (06:00)
[2021-01-31] MEDS ORDERED: Norepinephrine 16MCG/ML IVPRE 4,000 MCG/250 ML BAG IV SCH (06:00)
[2021-01-31] MEDS ORDERED: Morphine 2 MG/ML SYRINGE IV ONE (06:31)
[2021-01-31] MEDS ORDERED: Propofol 10 MG/ML 20 ML BTL ONE (07:10)
[2021-01-31] MEDS ORDERED: Ketamine HCL 50 mg/ml 10 ml VIAL (500 MG) ONE (07:10)
[2021-01-31] MEDS ORDERED: Propofol 0 MG/0 ML BTL ONE (07:10)
[2021-01-31] MEDS ORDERED: Succinylcholine 200 mg VIAL 20 mg/ml 10 ml VIAL (200 mg) ONE (07:10)
[2021-01-31] MEDS ORDERED: Glycopyrrolate IV 0.2 MG/ML 1 ML VIAL ONE (07:10)
[2021-01-31] MEDS ORDERED: Lidocaine 2% PF 5 ML VIAL ONE (07:17)
[2021-01-31] MEDS ORDERED: LORazepam 2 mg VIAL 1 ml IV PUSH ONE (07:18)
[2021-01-31] MEDS ORDERED: Lorazepam PYXIS KEY PRN (07:18)
[2021-01-31 07:42] LABS: Hematocrit 33 % (35-47); Hemoglobin 10.6 g/dL (12.0-16.0)
[2021-01-31] MEDS: Cefepime 2 GM in Dextrose 2 GM/50 ML BAG IV SCH ×2 (07:47→18:10)
[2021-01-31] MEDS ORDERED: Dexamethasone IV 4 MG/ML VIAL 1 ml VIAL ONE (07:56)
[2021-01-31] MEDS ORDERED: Ondansetron 4 mg VIAL 2 MG/ML 2 ml VIAL ONE (07:56)
[2021-01-31] MEDS: metroNIDAZOLE IV 500 MG/100ML 500 MG/100 ML BAG IVPB SCH ×3 (08:29→21:19)
[2021-01-31 08:35] LABS: Phosphorus 3.9 mg/dL (2.5-5.0)
[2021-01-31] MEDS ORDERED: LORazepam 2 mg VIAL 1 ml IV PUSH PRN ×2 (08:47→12:34)
[2021-01-31 09:25] LABS: Troponin I 0.08 ng/mL (<0.03)
[2021-01-31] MEDS: Pantoprazole VIAL 40 MG VIAL IV SCH (10:11)
[2021-01-31] MEDS ORDERED: Amiodarone 360 MG IVPREMIX 360 MG/200 ML BAG IV SCH (12:00)
[2021-01-31] MEDS ORDERED: HYDROcodone/ACET. 7.5/325 LIQ 15 ML UDC FEED TUBE PRN (12:29)
[2021-01-31] MEDS ORDERED: Famotidine SUSP ORALSYR 8 MG/ML FEED TUBE SCH (13:00)
[2021-01-31 13:01] LABS: Urine Appearance Cloudy; Urine Bilirubin Negative (Negative); Urine Blood Negative (Negative); Urine Color Yellow; Urine Glucose Negative (Negative); Urine Ketones Negative (Negative); Urine Nitrite Negative (Negative); Urine Protein Negative (Negative); Urine Urobilinogen Negative (Negative)
[2021-01-31 13:08] LABS: Urine Bacteria 2+ (Absent); Urine Red Blood Cell Trace(0-2/hpf) (Absent); Urine Squamous Epithelial Cell Present (Absent); Urine White Blood Cell 3+(>20/hpf) (Absent)
[2021-01-31] MEDS ORDERED: Iohexol 300 (CONTRAST) 10 ML SDV IV ONE (13:18)
[2021-01-31 13:25] LABS: Troponin I 1.03 ng/mL (<0.03)
[2021-01-31] MEDS: Morphine 2 MG/ML SYRINGE IV PRN ×2 (14:43→19:23)
[2021-01-31] MEDS ORDERED: LORazepam 2 mg VIAL 1 ml ONE (16:19)
[2021-01-31] MEDS: LORazepam 2 mg VIAL 1 ml IV PUSH PRN (16:23)
[2021-01-31] MEDS ORDERED: Albuterol/Ipratropium NEB.SOL (2.5/0.5 MG) 3 ML NEB.SOLN INH SCH (18:00)
[2021-01-31 18:19] LABS: Hematocrit 29 % (35-47); Hemoglobin 9.9 g/dL (12.0-16.0); Mean Corpuscular HGB Conc 34 g/dL (31-36); Mean Corpuscular Hemoglobin 32 pg (27-31); Mean Corpuscular Volume 93 fL (80-97); Mean Platelet Volume 10.7 fL (7.4-10.4); Platelet Count 141 10^3/uL (150-450); Red Blood Count 3.14 10^6 /uL (3.70-4.87); Red Cell Distribution Width 16 % (10-15); White Blood Count 14.6 10^3/uL (3.5-10.8)
[2021-01-31 18:44] LABS: Troponin I 0.63 ng/mL (<0.03)
[2021-01-31] MEDS: Albuterol/Ipratropium NEB.SOL (2.5/0.5 MG) 3 ML NEB.SOLN INH SCH (19:26)
[2021-02-01] MEDS: Morphine 2 MG/ML SYRINGE IV PRN ×2 (01:11→07:44)
[2021-02-01 01:24] LABS: Troponin I 0.37 ng/mL (<0.03)
[2021-02-01] MEDS: metroNIDAZOLE IV 500 MG/100ML 500 MG/100 ML BAG IVPB SCH ×3 (05:26→22:09)
[2021-02-01] MEDS: Cefepime 2 GM in Dextrose 2 GM/50 ML BAG IV SCH ×2 (05:26→17:27)
[2021-02-01 05:52] LABS: ABS Lymphocytes 0.6 10^3/ul (1.0-4.8); ABS Monocytes 1.2 10^3/ul (0-0.8); ABS Neutrophils 11.6 10^3/ul (1.5-7.7); Eosinophil % 0.2 %; Hematocrit 30 % (35-47); Hemoglobin 9.7 g/dL (12.0-16.0); Lymphocyte % 4.7 %; Mean Corpuscular HGB Conc 33 g/dL (31-36); Mean Corpuscular Hemoglobin 31 pg (27-31); Mean Corpuscular Volume 95 fL (80-97); Mean Platelet Volume 11.3 fL (7.4-10.4); Platelet Count 204 10^3/uL (150-450); Red Blood Count 3.12 10^6 /uL (3.70-4.87); Red Cell Distribution Width 16 % (10-15); White Blood Count 13.5 10^3/uL (3.5-10.8)
[2021-02-01 05:59] LABS: INR 1.14 (0.82-1.09)
[2021-02-01 06:08] LABS: Albumin 2.7 g/dL (3.2-5.2); Albumin/Globulin Ratio 1.1 (1-3); Calcium 8.2 mg/dL (8.6-10.3); EGFR African American 113.6 (>60); EGFR Non-African American 93.9 (>60); Globulin 2.5 g/dL (2-4); Magnesium 1.9 mg/dL (1.9-2.7); Phosphorus 3.2 mg/dL (2.5-5.0); Potassium 3.8 mmol/L (3.5-5.0); Total Bilirubin 0.4 mg/dL (0.2-1.0); Total Protein 5.2 g/dL (6.4-8.9)
[2021-02-01] MEDS: Albuterol/Ipratropium NEB.SOL (2.5/0.5 MG) 3 ML NEB.SOLN INH SCH (07:04)
[2021-02-01] MEDS: Pantoprazole VIAL 40 MG VIAL IV SCH (07:50)
[2021-02-01] MEDS ORDERED: KCL 20 MEQ/100 ML IVPREMIX 20 MEQ/100 ML BAG IV ONE (08:24)
[2021-02-01 13:32] LABS: % Iron Saturation 8 % (15-55); Iron 23 ug/dL (50-212); Total Iron Binding Capacity 276 mcg/dL (250-450); Transferrin 197 mg/dL (203-362); Unsaturated Iron Binding < 261 ug/dL
[2021-02-01 13:48] LABS: Ferritin 57.4 ng/mL (11-307)
[2021-02-01 14:15] LABS: Vitamin B12 617 pg/mL (180-914)
[2021-02-01] MEDS: LORazepam 2 mg VIAL 1 ml IV PUSH PRN ×2 (14:30→20:56)
[2021-02-01] MEDS: HYDROcodone/ACET. 7.5/325 LIQ 15 ML UDC FEED TUBE PRN ×2 (16:08→20:55)
[2021-02-01] MEDS ORDERED: Albuterol/Ipratropium NEB.SOL (2.5/0.5 MG) 3 ML NEB.SOLN INH PRN (17:28)
[2021-02-02] MEDS: LORazepam 2 mg VIAL 1 ml IV PUSH PRN ×3 (03:51→16:50)
[2021-02-02] MEDS: Cefepime 2 GM in Dextrose 2 GM/50 ML BAG IV SCH ×2 (05:42→18:06)
[2021-02-02] MEDS: Pantoprazole VIAL 40 MG VIAL IV SCH (06:17)
[2021-02-02] MEDS: HYDROcodone/ACET. 7.5/325 LIQ 15 ML UDC FEED TUBE PRN ×4 (06:17→21:41)
[2021-02-02] MEDS: metroNIDAZOLE IV 500 MG/100ML 500 MG/100 ML BAG IVPB SCH ×3 (06:23→21:49)
[2021-02-02] MEDS ORDERED: Iron Sucrose 200 MG in NS 0.9% 100 ml BAG 100 ML IVPB ONE (11:30)
[2021-02-03] MEDS: LORazepam 2 mg VIAL 1 ml IV PUSH PRN ×2 (01:10→08:50)
[2021-02-03] MEDS: HYDROcodone/ACET. 7.5/325 LIQ 15 ML UDC FEED TUBE PRN ×2 (04:55→10:55)
[2021-02-03] MEDS: Cefepime 2 GM in Dextrose 2 GM/50 ML BAG IV SCH (05:39)
[2021-02-03 06:09] LABS: Hematocrit 30 % (35-47); Hemoglobin 10.2 g/dL (12.0-16.0); Mean Corpuscular HGB Conc 34 g/dL (31-36); Mean Corpuscular Hemoglobin 32 pg (27-31); Mean Corpuscular Volume 95 fL (80-97); Red Blood Count 3.15 10^6 /uL (3.70-4.87); Red Cell Distribution Width 15 % (10-15); White Blood Count 8.7 10^3/uL (3.5-10.8)
[2021-02-03 06:10] LABS: Calcium 8.3 mg/dL (8.6-10.3); EGFR African American 136.6 (>60); EGFR Non-African American 112.9 (>60); Magnesium 1.8 mg/dL (1.9-2.7); Potassium 3.1 mmol/L (3.5-5.0)
[2021-02-03 06:57] LABS: ABS Eosinophils 0.2 10^3/ul (0-0.6); ABS Lymphocytes 0.4 10^3/ul (1.0-4.8); Eosinophil % 2.7 %; Lymphocyte % 4.9 %; Mean Platelet Volume 10.9 fL (7.4-10.4); Nucleated Red Blood Cells % 0.3; Platelet Count 70 10^3/uL (150-450)
[2021-02-03] MEDS: Pantoprazole VIAL 40 MG VIAL IV SCH (07:18)
[2021-02-03] MEDS: metroNIDAZOLE IV 500 MG/100ML 500 MG/100 ML BAG IVPB SCH (07:19)
[2021-02-03] MEDS ORDERED: Magnesium Sulfate IV 1GM/100ML 1 GM/100 ML BAG IV ONE (08:33)
[2021-02-03] MEDS ORDERED: Morphine 2 MG/ML SYRINGE ONE (08:33)
[2021-02-03] MEDS ORDERED: Iron Sucrose 200 MG in NS 0.9% 100 ml BAG 100 ML IVPB ONE (09:00)
[2021-02-03 11:03] VITALS: BP 109/53
[2021-02-03] MEDS ORDERED: Potassium Chloride LIQUID 20 MEQ/15 ML LIQUID PEG TUBE ONE (12:21)
== END 2021-02-03 13:30 | disposition home health service (06) ==
LOC: ED 00:57 → ICU 03:00 → AA 03:00 → ICU 04:38 → SSU 02-01 13:26
PROVIDERS: ADMIT Otolaryngology; ATTEND Internal Medicine

== ENCOUNTER 2021-02-13 20:18 | Inpatient (IN) ==
[2021-02-13] MEDS ORDERED: NS 0.9% 1000 ml BAG 1,000 ML IV ONE (20:23)
[2021-02-13] MEDS ORDERED: Pantoprazole VIAL 40 MG VIAL IV ONE (20:26)
[2021-02-13] MEDS ORDERED: Octreotide Acetate 50 MCG/ML ML IV SLOW PU ONE (20:26)
[2021-02-13] MEDS ORDERED: Ondansetron 4 mg VIAL 2 MG/ML 2 ml VIAL IV ONE (20:26)
[2021-02-13 21:15] LABS: Hematocrit 23 % (35-47); Hemoglobin 7.6 g/dL (12.0-16.0); Mean Corpuscular HGB Conc 33 g/dL (31-36); Mean Corpuscular Hemoglobin 32 pg (27-31); Mean Corpuscular Volume 98 fL (80-97); Mean Platelet Volume 10.9 fL (7.4-10.4); Platelet Count 15 10^3/uL (150-450); Red Blood Count 2.37 10^6 /uL (3.70-4.87); Red Cell Distribution Width 17 % (10-15)
[2021-02-13 21:23] LABS: Activated Partial Thrombo Time 39.8 seconds (26.0-38.0); INR 1.62 (0.82-1.09)
[2021-02-13 21:26] LABS: Albumin 1.8 g/dL (3.2-5.2); Albumin/Globulin Ratio 1.2 (1-3); C Reactive Protein 1.38 mg/L (<8.01); EGFR African American 142.6 (>60); EGFR Non-African American 117.8 (>60); Globulin 1.5 g/dL (2-4); Potassium 3.7 mmol/L (3.5-5.0); Total Bilirubin 0.2 mg/dL (0.2-1.0); Total Protein 3.3 g/dL (6.4-8.9)
[2021-02-13 21:27] LABS: Calcium 5.7 mg/dL (8.6-10.3); Troponin I 0.01 ng/mL (<0.03)
[2021-02-13] MEDS ORDERED: Oxymetazoline 0.05% NASAL SPR 15 ML BTL ONE (21:33)
[2021-02-13] MEDS ORDERED: Lidocaine 2% PF 5 ML VIAL ONE (21:43)
[2021-02-13] MEDS ORDERED: Rocuronium 50 mg VIAL 10 mg/ml 5 ml VIAL (50 mg) ONE (21:43)
[2021-02-13] MEDS ORDERED: Phenylephrine 40 mcg/mL 10mL (400mcg) SYRINGE ONE ×2 (21:43→21:44)
[2021-02-13] MEDS ORDERED: EPINEPHrine SYR 0.1MG/ML 10 ml SYRINGE ONE (21:43)
[2021-02-13] MEDS ORDERED: Phenylephrine IV 10 MG/ML 1 ml VIAL ONE ×2 (21:43→21:47)
[2021-02-13] MEDS ORDERED: Propofol 10 MG/ML 20 ML BTL ONE (21:43)
[2021-02-13] MEDS ORDERED: fentaNYL 250 mcg/5 ml 50 MCG/ML 5 ml VIAL (250 MCG) ONE (21:43)
[2021-02-13] MEDS ORDERED: Sterile Water for Inj 10 ML ONE (21:44)
[2021-02-13] MEDS ORDERED: EPHEDrine (Pressors) 50 MG/ML VIAL ONE (21:44)
[2021-02-13 21:47] LABS: ABS Eosinophils 0.1 10^3/ul (0-0.6); ABS Lymphocytes 0.8 10^3/ul (1.0-4.8); ABS Monocytes 0.8 10^3/ul (0-0.8); ABS Neutrophils 5.3 10^3/ul (1.5-7.7); Eosinophil % 0.9 %; Lymphocyte % 11.8 %
[2021-02-13] MEDS ORDERED: Dexamethasone IV 4 MG/ML VIAL 1 ml VIAL ONE (22:43)
[2021-02-13] MEDS ORDERED: Ondansetron 4 mg VIAL 2 MG/ML 2 ml VIAL ONE (22:55)
[2021-02-13] MEDS ORDERED: Lorazepam PYXIS KEY PRN (23:50)
[2021-02-14] MEDS: NS 0.9% 1000 ml BAG 1,000 ML IV SCH ×2 (00:20→15:17)
[2021-02-14 00:26] LABS: Hematocrit 43 % (35-47); Hemoglobin 14.1 g/dL (12.0-16.0); Mean Corpuscular HGB Conc 33 g/dL (31-36); Mean Corpuscular Hemoglobin 31 pg (27-31); Mean Corpuscular Volume 92 fL (80-97); Mean Platelet Volume 10.6 fL (7.4-10.4); Platelet Count 9 10^3/uL (150-450); Red Blood Count 4.63 10^6 /uL (3.70-4.87); Red Cell Distribution Width 16 % (10-15); White Blood Count 16.9 10^3/uL (3.5-10.8)
[2021-02-14] MEDS ORDERED: Zosyn per Pharmacy NOTE FOLLOW UP SCH (01:00)
[2021-02-14] MEDS ORDERED: Piperacillin/Tazobac ADVAN 3.375 GM in NS 0.9% 100 ml BAG 100 ML IV ONE (01:00)
[2021-02-14 01:30] LABS: Urine Appearance Cloudy; Urine Bilirubin Negative (Negative); Urine Blood Negative (Negative); Urine Color Yellow; Urine Glucose Negative (Negative); Urine Ketones Negative (Negative); Urine Nitrite Negative (Negative); Urine Protein 1+(30 mg/dL) (Negative); Urine Specific Gravity 1.018 (1.002-1.030); Urine Urobilinogen Negative (Negative)
[2021-02-14 01:50] LABS: Urine Bacteria Absent (Absent); Urine Red Blood Cell Absent (Absent); Urine Squamous Epithelial Cell Present (Absent); Urine White Blood Cell Trace(0-5/hpf) (Absent)
[2021-02-14] MEDS: Chlorhexidine MOUTHWASH 0.12% 15 ML UDC TOPICAL SCH ×7 (02:05→23:59)
[2021-02-14] MEDS: LORazepam 2 mg VIAL 1 ml IV PUSH PRN ×4 (04:52→18:47)
[2021-02-14] MEDS: ZOSYN 3.375 GM Q8H per EXTENDED INFUSION IV SCH ×3 (05:03→22:08)
[2021-02-14 05:52] LABS: Calcium 7.2 mg/dL (8.6-10.3); EGFR African American 120.1 (>60); EGFR Non-African American 99.3 (>60); Potassium 3.8 mmol/L (3.5-5.0)
[2021-02-14 06:12] LABS: INR 1.23 (0.82-1.09)
[2021-02-14 06:19] LABS: ABS Lymphocytes 0.1 10^3/ul (1.0-4.8); ABS Monocytes 0.1 10^3/ul (0-0.8); ABS Neutrophils 12.5 10^3/ul (1.5-7.7); Hematocrit 41 % (35-47); Hemoglobin 13.9 g/dL (12.0-16.0); Lymphocyte % 0.8 %; Mean Corpuscular HGB Conc 34 g/dL (31-36); Mean Corpuscular Hemoglobin 31 pg (27-31); Mean Corpuscular Volume 90 fL (80-97); Nucleated Red Blood Cells % 0.1; Red Cell Distribution Width 17 % (10-15); White Blood Count 12.7 10^3/uL (3.5-10.8)
[2021-02-14] MEDS ORDERED: fentaNYL 100 mcg/2 ml 50 MCG/ML VIAL IV SLOW PU PRN ×3 (07:40→12:13)
[2021-02-14] MEDS: Pantoprazole VIAL 40 MG VIAL IV SCH (07:50)
[2021-02-14] MEDS ORDERED: KCL 20 MEQ/100 ML IVPREMIX 20 MEQ/100 ML BAG IV ONE (08:00)
[2021-02-14 08:38] LABS: Mean Platelet Volume 9.8 fL (7.4-10.4); Platelet Count 30 10^3/uL (150-450)
[2021-02-14] MEDS: Propofol 10 mg/ml 100 ML BTL 100 ML IV SCH ×2 (09:14)
[2021-02-14 09:17] LABS: Magnesium 1.9 mg/dL (1.9-2.7); Phosphorus 3.7 mg/dL (2.5-5.0)
[2021-02-14] MEDS ORDERED: Magnesium Sulfate IV 1GM/100ML 1 GM/100 ML BAG IV ONE (10:30)
[2021-02-14] MEDS ORDERED: Albuterol 2.5mg/3 ml (0.083%) NEB.SOLN INH PRN (10:33)
[2021-02-14] MEDS ORDERED: romiPLOStim 250 MCG/0.5 ML VIAL SUBCUT SCH (12:00)
[2021-02-14] MEDS: Dexamethasone IV 40 MG in NS 0.9% 50 ML 50 ML IVPB SCH (12:22)
[2021-02-14] MEDS ORDERED: HYDROcodone/ACET. 7.5/325 LIQ 15 ML UDC PO PRN (14:59)
[2021-02-14] MEDS ORDERED: Lorazepam PYXIS KEY PRN (15:15)
[2021-02-14] MEDS ORDERED: LORazepam 2 mg VIAL 1 ml IV PUSH ONE (15:15)
[2021-02-14 15:45] LABS: ABS Lymphocytes 0.2 10^3/ul (1.0-4.8); ABS Monocytes 0.2 10^3/ul (0-0.8); ABS Neutrophils 5.9 10^3/ul (1.5-7.7); Hematocrit 41 % (35-47); Hemoglobin 13.6 g/dL (12.0-16.0); Lymphocyte % 3.7 %; Mean Corpuscular HGB Conc 34 g/dL (31-36); Mean Corpuscular Hemoglobin 30 pg (27-31); Mean Corpuscular Volume 91 fL (80-97); Nucleated Red Blood Cells % 0.1; Red Blood Count 4.47 10^6 /uL (3.70-4.87); Red Cell Distribution Width 18 % (10-15); White Blood Count 6.4 10^3/uL (3.5-10.8)
[2021-02-14 16:51] LABS: Mean Platelet Volume 12.4 fL (7.4-10.4); Platelet Count 43 10^3/uL (150-450)
[2021-02-14] MEDS ORDERED: Morphine 4 MG/ML VIAL (1 ml) IV PRN (18:26)
[2021-02-14] MEDS: Morphine ORAL.SOLN 10 mg 2 mg/ml UDC 5 ml (10 mg) PO SCH (23:40)
[2021-02-15] MEDS: NS 0.9% 1000 ml BAG 1,000 ML IV SCH ×3 (01:17→23:25)
[2021-02-15] MEDS: Chlorhexidine MOUTHWASH 0.12% 15 ML UDC TOPICAL SCH ×5 (03:37→20:13)
[2021-02-15 04:49] LABS: ABS Lymphocytes 0.2 10^3/ul (1.0-4.8); ABS Monocytes 0.3 10^3/ul (0-0.8); ABS Neutrophils 6.4 10^3/ul (1.5-7.7); Hematocrit 37 % (35-47); Hemoglobin 12.6 g/dL (12.0-16.0); Lymphocyte % 3.1 %; Mean Corpuscular HGB Conc 34 g/dL (31-36); Mean Corpuscular Hemoglobin 31 pg (27-31); Mean Corpuscular Volume 90 fL (80-97); Nucleated Red Blood Cells % 0.1; Red Blood Count 4.08 10^6 /uL (3.70-4.87); Red Cell Distribution Width 17 % (10-15); White Blood Count 6.9 10^3/uL (3.5-10.8)
[2021-02-15 05:16] LABS: Calcium 7.7 mg/dL (8.6-10.3); EGFR African American 95.1 (>60); EGFR Non-African American 78.6 (>60); Potassium 3.6 mmol/L (3.5-5.0)
[2021-02-15 05:57] LABS: Platelet Count Platelets clumped. 10^3/uL (150-450)
[2021-02-15] MEDS: ZOSYN 3.375 GM Q8H per EXTENDED INFUSION IV SCH ×3 (06:04→21:56)
[2021-02-15] MEDS: Pantoprazole VIAL 40 MG VIAL IV SCH (08:31)
[2021-02-15] MEDS: Morphine ORAL.SOLN 10 mg 2 mg/ml UDC 5 ml (10 mg) PO SCH ×4 (08:31→23:18)
[2021-02-15] MEDS: Dexamethasone IV 40 MG in NS 0.9% 50 ML 50 ML IVPB SCH (08:46)
[2021-02-15] MEDS: Morphine 2 MG/ML SYRINGE IV PRN (12:08)
[2021-02-15] MEDS: LORazepam 2 mg VIAL 1 ml IV PUSH PRN (17:49)
[2021-02-15] MEDS: Nystatin TOP POWDER 15 GM BTL TOPICAL SCH (21:41)
[2021-02-16] MEDS: Chlorhexidine MOUTHWASH 0.12% 15 ML UDC TOPICAL SCH ×7 (02:06→22:11)
[2021-02-16] MEDS: ZOSYN 3.375 GM Q8H per EXTENDED INFUSION IV SCH ×3 (05:32→22:28)
[2021-02-16] MEDS: Morphine ORAL.SOLN 10 mg 2 mg/ml UDC 5 ml (10 mg) PO SCH ×3 (06:21→23:54)
[2021-02-16] MEDS: Pantoprazole VIAL 40 MG VIAL IV SCH (09:37)
[2021-02-16] MEDS: Nystatin TOP POWDER 15 GM BTL TOPICAL SCH ×3 (09:38→22:12)
[2021-02-16] MEDS: Dexamethasone IV 40 MG in NS 0.9% 50 ML 50 ML IVPB SCH (09:38)
[2021-02-16] MEDS: Morphine 2 MG/ML SYRINGE IV PRN (12:30)
[2021-02-16] MEDS: LORazepam 2 mg VIAL 1 ml IV PUSH PRN ×2 (13:53→18:41)
[2021-02-17] MEDS: Chlorhexidine MOUTHWASH 0.12% 15 ML UDC TOPICAL SCH ×6 (01:19→21:29)
[2021-02-17] MEDS: Morphine 2 MG/ML SYRINGE IV PRN ×6 (03:54→23:48)
[2021-02-17] MEDS: ZOSYN 3.375 GM Q8H per EXTENDED INFUSION IV SCH (06:17)
[2021-02-17] MEDS: Pantoprazole VIAL 40 MG VIAL IV SCH (08:41)
[2021-02-17] MEDS: LORazepam 2 mg VIAL 1 ml IV PUSH PRN ×5 (08:41→23:51)
[2021-02-17] MEDS: Morphine ORAL.SOLN 10 mg 2 mg/ml UDC 5 ml (10 mg) PO SCH ×3 (09:08→22:52)
[2021-02-17] MEDS: Nystatin TOP POWDER 15 GM BTL TOPICAL SCH ×3 (09:08→20:22)
[2021-02-18] MEDS: Chlorhexidine MOUTHWASH 0.12% 15 ML UDC TOPICAL SCH ×5 (01:10→15:49)
[2021-02-18] MEDS: Morphine 2 MG/ML SYRINGE IV PRN ×6 (02:50→17:05)
[2021-02-18] MEDS: LORazepam 2 mg VIAL 1 ml IV PUSH PRN ×2 (02:54→05:56)
[2021-02-18] MEDS: Morphine ORAL.SOLN 10 mg 2 mg/ml UDC 5 ml (10 mg) PO SCH ×2 (07:54→15:48)
[2021-02-18] MEDS: Nystatin TOP POWDER 15 GM BTL TOPICAL SCH ×2 (07:56→15:47)
[2021-02-18] MEDS: Pantoprazole VIAL 40 MG VIAL IV SCH (08:12)
[2021-02-18] MEDS ORDERED: LORazepam 2 mg VIAL 1 ml ONE (10:58)
[2021-02-18 16:12] VITALS: BP 105/59
[2021-02-18] MEDS ORDERED: Lorazepam PYXIS KEY PRN (17:01)
[2021-02-18] MEDS ORDERED: LORazepam 2 mg VIAL 1 ml IV PUSH ONE (17:01)
== END 2021-02-18 20:30 | disposition hospice, home (50) ==
LOC: ED 20:18 → ICU 22:16 → SSU 02-16 14:20
PROVIDERS: ADMIT Internal Medicine; ATTEND Internal Medicine